=== PATIENT | male | born 1975 | race African-American/Black ===

== ENCOUNTER 2016-09-24 10:25 | Emergency (ER) | payer OTHER ==
--- NOTE | 2016-09-24 10:49 | ER Document Report ---
ED Medical Screen (RME) - General Chief Complaint: Abdominal Pain Stated Complaint: RIGHT SIDE PAIN Time Seen by Provider: 09/24/16 10:39 TRAVEL OUTSIDE OF THE [place] IN LAST 30 DAYS: No - HPI Patient complains to provider of: Right upper quadrant pain occurs after eating , followed by emesis Onset: Other - Context: Patient presents with approximately 2 day history of right upper quadrant pain that occurs about 10 or 15 minutes after eating. Patient takes with an get nauseous and have episodes of emesis. During this time patient is also noticed that his urine has become very discolored. Denies fever, chills, diarrhea, melena. Patient denies any shortness of breath or cough. Patient is status post cholecystectomy approximately 8 months ago. Had full recovery without any incident Quality of pain: Dull Severity: Moderate Pain Level: 4 Associated Symptoms: Nausea Exacerbated by: Food - Related Data Allergies/Adverse Reactions: No Known Allergies Allergy (Verified 09/24/16 10:30) Past Medical History Pulmonary Medical History: Reports: Hx Sleep Apnea Renal/ Medical History: Denies: Hx Peritoneal Dialysis Psychiatric Medical History: Denies: Hx Depression Physical Exam - Vital signs Vitals: Temp Pulse Resp BP Pulse Ox 97.5 F 90 18 129/94 H 99 09/24/16 10:09/24/16 10:09/24/16 10:09/24/16 10:09/24/16 10:29 - Abdominal Distension: No: Fluid wave Bowel sounds: Normal Tenderness: Tender, Other - Mild RUQ tenderness, no guarding, no rigidity. No: McBurney's point, Cross's sign Organomegaly: No: Hepatomegaly Course - Re-evaluation Re-evalutation: 09/24/16 10:49 Appearing man stable vital signs all within normal limits present with approximately 2 day history of increasing postprandial right upper quadrant pain. Patient is status post cholecystectomy. Patient also noticed this pain is resolved with emesis every time after he eats. During this course patient also has had no discolored urine that is brownish tea colored in nature. Patient is no history of kidney stones pain is not constant. - Vital Signs Vital signs: Temp Pulse Resp BP Pulse Ox 97.5 F 90 18 129/94 H 99 09/24/16 10:09/24/16 10:09/24/16 10:29 09/24/16 10:29 09/24/16 10:29
[2016-09-24 11:20] LABS: HEMATOCRIT 46.7 % (37.9-51.0); HEMOGLOBIN 15.8 g/dL (13.5-17.0); HGB HCT DIFFERENCE 0.7; MEAN CORPUSCULAR HEMOGLOBIN 31.6 pg (27.0-33.4); MEAN CORPUSCULAR HGB CONC 33.8 g/dL (32.0-36.0); MEAN CORPUSCULAR VOLUME 93 fl (80-97); RED CELL DISTRIBUTION WIDTH 13.9 % (11.5-14.0); WHITE BLOOD COUNT 4.9 10^3/uL (4.0-10.5)
--- NOTE | 2016-09-24 11:20 | ER Document Report ---
ED GI/ - General Chief Complaint: Abdominal Pain Stated Complaint: RIGHT SIDE PAIN Time Seen by Provider: 09/24/16 10:39 Mode of Arrival: Ambulatory Information source: Patient TRAVEL OUTSIDE OF THE [place] IN LAST 30 DAYS: No - HPI Patient complains to provider of: Abdominal pain, Vomiting Onset: Other - 2-3 days Timing/Duration: Sudden Quality of pain: Sharp Severity at maximum: Moderate Severity in ED: None Location: Epigastric, RUQ Associated symptoms: Nausea, Vomiting Exacerbated by: Food Relieved by: Denies Similar symptoms previously: Yes Recently seen / treated by doctor: No Notes: 09/24/16 11:16 Patient is a 41-year-old male with no reported medical problems with a history of cholecystectomy in November of last year, who presents to the emergency room complaining of 2-3 day history of epigastric and right upper quadrant abdominal pain with nausea and vomiting, particularly increased by food intake, he denies a fever, no urinary symptoms, no sick contacts, he reports increased dark discoloration to his urine and yellowing of his eyes - Related Data Allergies/Adverse Reactions: No Known Allergies Allergy (Verified 09/24/16 10:30) Past Medical History - General Information source: Patient - Social History Smoking Status: Never Smoker Chew tobacco use (# tins/day): No Frequency of alcohol use: 2 beers every other day Drug Abuse: None Family History: Reviewed & Not Pertinent Pulmonary Medical History: Reports: Hx Sleep Apnea Renal/ Medical History: Denies: Hx Peritoneal Dialysis Psychiatric Medical History: Denies: Hx Depression Past Surgical History: Reports: Hx Cholecystectomy - 11/2015 Review of Systems - Review of Systems Constitutional: No symptoms reported EENT: See HPI Cardiovascular: No symptoms reported Respiratory: No symptoms reported Gastrointestinal: No symptoms reported Genitourinary: See HPI Male Genitourinary: No symptoms reported Musculoskeletal: No symptoms reported Skin: No symptoms reported Hematologic/Lymphatic: No symptoms reported Neurological/Psychological: No symptoms reported Physical Exam - Vital signs Vitals: Temp Pulse Resp BP Pulse Ox 97.5 F 90 18 129/94 H 99 09/24/16 10:29 09/24/16 10:29 09/24/16 10:29 09/24/16 10:29 09/24/16 10:29 Interpretation: Normal - General General appearance: Appears well, Alert - HEENT Head: Normocephalic, Atraumatic Eyes: Normal Conjunctiva: Normal Extraocular movements intact: Yes Eyelashes: Normal Pupils: PERRL Pharynx: Normal Neck: Normal - Respiratory Respiratory status: No respiratory distress Chest status: Nontender Breath sounds: Normal Chest palpation: Normal - Cardiovascular Rhythm: Regular Heart sounds: Normal auscultation Murmur: No - Abdominal Inspection: Normal Distension: No distension Bowel sounds: Normal Tenderness: Nontender Organomegaly: No organomegaly - Back Back: Normal, Nontender - Extremities General upper extremity: Normal inspection, Nontender, Normal color, Normal ROM , Normal temperature General lower extremity: Normal inspection, Nontender, Normal color, Normal ROM , Normal temperature, Normal weight bearing. No: Kiara's sign - Neurological Neuro grossly intact: Yes Cognition: Normal Orientation: AAOx4 Armen Coma Scale Eye Opening: Spontaneous [place] Coma Scale Verbal: Oriented [place] Coma Scale Motor: Obeys Commands [place] Coma Scale Total: 15 Speech: Normal Motor strength normal: LUE, RUE, LLE, RLE Sensory: Normal - Psychological Associated symptoms: Normal affect, Normal mood - Skin Skin Temperature: Warm Skin Moisture: Dry Skin Color: Normal Course - Re-evaluation Re-evalutation: 09/24/16 12:56 call to surgeon- Dr Landry, recomends medical admit with GI consult, patient likely needs ERCP call to pest control operator- no GI available until 09/2609/24/16 14:05 Patient was discussed with Dr. Rizzo, who declines admission based on the fact that there is no gastroenterology available at this facility for at least the next 2 days, and the edi consultant who is on-call on the does not perform ERCP A call was placed to [facility], spoke with Alize who reports that their facility does not have the capability of performing an ERCP until at least October 02, recommended I call [facility] or [facility], however she was kind enough to actually transfer me to the transfer center at [facility] in [place] She was discussed with Acacia at [facility], requested callback from hospitalist or GI service for transfer of patient - Vital Signs Vital signs: Temp Pulse Resp BP Pulse Ox 97.5 F 90 18 129/94 H 99 09/24/16 10:09/24/16 10:09/24/16 10:09/24/16 10:29 09/24/16 10:29 - Laboratory Result Diagrams: 09/24/16 10:55 09/24/16 10:55 Laboratory results interpreted by me: 09/24/16 09/24/16 10:55 10:55 Creatinine 1.32 H Est GFR (Non-Af Amer) 59 L Total Bilirubin 5.9 H Direct Bilirubin 4.8 H AST 209 H ALT 572 H Alkaline Phosphatase 173 H Urine Protein 30 H Urine Ketones TRACE H Urine Blood SMALL H Urine Bilirubin MODERATE H Urine Urobilinogen 4.0 H - Diagnostic Test Radiology reviewed: Image reviewed, Reports reviewed Discharge - Discharge Clinical Impression: Common bile duct calculus Condition: Stable Disposition: [facility]
[2016-09-24 11:33] LABS: APPEARANCE,URINE CLEAR; BILIRUBIN,URINE MODERATE (NEGATIVE); GLUCOSE, URINE NEGATIVE (NEGATIVE); KETONES,URINE TRACE mg/dL (NEGATIVE); LEUKOCYTE ESTERASE,URINE NEGATIVE (NEGATIVE); NITRITE,URINE NEGATIVE (NEGATIVE); PROTEIN,URINE 30 mg/dL (NEGATIVE); URINE SPECIFIC GRAVITY 1.013
[2016-09-24 11:38] LABS: ALANINE AMINOTRANSFERASE 572 U/L (21-72); ALBUMIN 4.8 g/dL (3.5-5.0); ALKALINE PHOSPHATASE 173 U/L (38-126); ANION GAP 11 (5-19); ASPARTATE AMINO TRANSFERASE 209 U/L (17-59); BILIRUBIN,DIRECT 4.8 mg/dL (0.0-0.4); BILIRUBIN,TOTAL 5.9 mg/dL (0.2-1.3); BLOOD UREA NITROGEN 10 mg/dL (7-20); CALCIUM 9.7 mg/dL (8.4-10.2); CARBON DIOXIDE 28 mmol/L (22-30); CHLORIDE 100 mmol/L (98-107); CREATINE KINASE 159 U/L (55-170); CREATININE RESULT 1.32 mg/dL (0.52-1.25); GLUCOSE 107 mg/dL (75-110); LIPASE 211.8 U/L (23-300); POTASSIUM 4.2 mmol/L (3.6-5.0); SODIUM 139.3 mmol/L (137-145); TOTAL PROTEIN 8.1 g/dL (6.3-8.2)
[2016-09-24 11:55] LABS: BASOPHILS % (MANUAL) 0 % (0-2); EOSINOPHILS % (MANUAL) 3 % (0-6); LYMPHOCYTES % (MANUAL) 29 % (13-45); TOTAL CELLS COUNTED 100
[2016-09-24 11:59] LABS: POLYCHROMASIA SLIGHT
--- NOTE | 2016-09-24 12:43 | RADIOLOGY REPORT (SQ) ---
EXAM DESCRIPTION: CT ABD/PELVIS WITH IV ONLY COMPLETED DATE/TIME: 09/24/2016 12:23 pm REASON FOR STUDY: ruq COMPARISON: None. TECHNIQUE: CT scan of the abdomen and pelvis performed using helical scanning technique with dynamic intravenous contrast injection. No oral contrast. Images reviewed with lung, soft tissue, and bone windows. Reconstructed coronal and sagittal MPR images reviewed. Delayed images for evaluation of the urinary system also acquired. All images stored on PACS. All CT scanners at this facility use dose modulation, iterative reconstruction, and/or weight based d osing when appropriate to reduce radiation dose to as low as reasonably achievable (ALARA). [facility]: Dose Right [facility]: CareDose [facility]: Dose Right [facility]: Teradose 4D [facility]: [employer] CONTRAST TYPE AND DOSE: contrast/concentration: Isovue 370.00 mg/ml; Total Contrast Delivered: 100.0 ml; Total Saline Delivered: 72.0 ml RENAL FUNCTION: BUN 10 creatinine 1.3 RADIATION DOSE: Up-to-date CT equipment and radiation dose reduction techniques were employed. CTDIv ol: 14.3 - 18.3 mGy. DLP: 1767 mGy-cm.. LIMITATIONS: None. FINDINGS: LOWER CHEST: No significant findings. No nodules or infiltrates. LIVER: Steatosis. Normal size. No masses. No dilated ducts. SPLEEN: Normal size. No focal lesions. PANCREAS: No masses. No significant calcifications. No adjacent inflammation or peripancreatic fluid collections. Pancreatic duct not dilated. GALLBLADDER: Surgically absent. ADRENAL GLANDS: No significant masses or asymmetry. RIGHT KIDNEY AND URETER: 2.5 cm cyst upper pole. No solid masses. No significant calcifications. No hydronephrosis or hydroureter. LEFT KIDNEY AND URETER: No solid masses. No significant calcifications. No hydronephrosis or hydr oureter. AORTA AND VESSELS: No aneurysm. No dissection. Renal arteries, SMA, celiac without stenosis. RETROPERITONEUM: No retroperitoneal adenopathy, hemorrhage or masses. BOWEL AND PERITONEAL CAVITY: No masses or inflammatory changes. No free fluid or peritoneal masses. APPENDIX: Not visualized. PELVIS: No mass. No free fluid. Normal bladder. ABDOMINAL WALL: No significant hernia. BONES: No significant or acute findings. OTHER: No other significant finding. IMPRESSION: No acute findings in the abdomen or pelvis. TECHNICAL DOCUMENTATION: JOB ID: [id number] Quality ID # [id number]: Final reports with documentation of one or more dose reduction techniques (e.g., Au tomated exposure control, adjustment of the mA and/or kV according to patient size, use of iterative reconstruction technique) 2010 [employer]- All Rights Reserved
[2016-09-24] MEDS ORDERED: NORMAL SALINE 1000 ML 1,000 ML IV PRN (14:57)
[2016-09-24 18:37] VITALS: BP 112/68
== END 2016-09-24 20:18 | disposition short-term general hospital (02) ==
LOC: ER 10:25
DX: K80.50 Calculus of bile duct without cholangitis or cholecystitis without obstruction (principal); R10.13 Epigastric pain; R10.11 Right upper quadrant pain; R11.2 Nausea with vomiting, unspecified
CPT/HCPCS: 99285; 96360; 96361; 36415; 82550; 83690; 85025; 80076; 80048; 81001; 74177; J7030